=== PATIENT | male | born 1995 | race Caucasian/White ===

== ENCOUNTER → 2017-04-03 | Outpatient (CLI) | payer OTHER ==
--- NOTE | ~2017-04-03 | 2DMMODE ---
[facility] [address] [place] [address] 2 D/M-MODE ECHOCARDIOGRAM Name: NORADU ESTHER Room #: REG CL [facility]#: [id number] Admission: 04/03/17 Attend Phys: Willie Haq Discharge: Date of : 89 Date of Service: 04/03/17 1025 Report #: [id number] THIS REPORT FOR: //name// APPROVED REPORT Study performed: 04/03/2017 09:31:02 EXAM: Comprehensive 2D, Doppler, and color-flow Echocardiogram Patient Location: Out-Patient Status: routine Other Information Study Quality: Good Indications SVT 2D Dimensions RVDd: 35.13 mm LVEF(%): 63.11 (>50%) IVSd: 8.90 (7-11mm) LVOT Diam: 24.06 (18-24mm) LVDd: 50.94 mm PWd: 9.24 (7-11mm) Ascending Ao: 29.64 (22-36mm) LVDs: 33.43 (25-40mm) Aortic Root: 35.06 mm Jeffers's LVEF: 63.11 % Volumes Left Atrial Volume (Systole) Single Plane 4CH: 29.66 mL Single Plane 2CH: 30.34 mL LA ESV Index: 15.00 mL/m2 Aortic Valve AoV Peak Quinton.: 1.26 m/s AO Peak Gr.: 6.33 mmHg LVOT Max P.84 mmHg LVOT Max V: 0.98 m/s LUIS Vmax: 3.54 cm2 Mitral Valve E/A Ratio: 2.4 MV Decel. Time: 203.07 ms MV E Max Quinton.: 0.75 m/s MV A Quinton.: 0.31 m/s MV PHT: 58.89 ms IVRT: 64.59 ms [facility] [address] [place] [address] 2 D/M-MODE ECHOCARDIOGRAM Name: DU MELENDEZ Room #: REG [facility]#: [id number] Admission: 04/03/17 Attend Phys: Willie Haq Discharge: Date of : 89 Date of Service: 04/03/17 1025 Report #: [id number] Pulmonary Valve PV Peak Quinton.: 1.05 m/s PV Peak Gr.: 4.42 mmHg Pulmonary Vein P Vein S: 0.66 m/s P Vein D: 0.72 m/s P Vein S/D Ratio: 0.92 Tricuspid Valve TR Peak Quinton.: 2.25 m/s RAP Estimate: 5.00 mmHg TR Peak Gr.: 20.25 mmHg PA Pressure: 25.00 mmHg Left Ventricle The left ventricle is normal size. There is normal LV segmental wall motion. There is normal left ventricular wall thickness. The left ventricular systolic function is normal. LVEF is 55%. The left ventricular diastolic function is normal. Right Ventricle The right ventricle is normal size. The right ventricular systolic function is normal. Atria The left atrium size is normal. The right atrium size is normal. Aortic Valve The aortic valve is normal in structure. No aortic regurgitation is present. There is no aortic valvular stenosis. Mitral Valve The mitral valve is normal in structure. There is no mitral valve regurgitation noted. No evidence of mitral valve stenosis. Tricuspid Valve The tricuspid valve is normal in structure. There is trace to mild tricuspid regurgitation. The right atrial pressure is estimated at 5 mmHg. Estimated PAP of 25mmHg. Pulmonic Valve The pulmonary valve is normal in structure. Trace to mild pulmonic regurgitation. [facility] [address] [address] 2 D/M-MODE ECHOCARDIOGRAM Name: KARELYCarlaDU ESTHER Room #: REG [facility]#: [id number] Admission: 04/03/17 Attend Phys: Willie Haq Discharge: Date of : 89 Date of Service: 04/03/17 1025 Report #: [id number] The aortic root is normal in size. The ascending aorta is normal in size. IVC is normal in size and collapses >50% with inspiration. Pericardium There is no pericardial effusion. <Conclusion> The left ventricle is normal size. LVEF is 55%. The mitral valve is normal in structure. There is trace to mild tricuspid regurgitation. The right atrial pressure is estimated at 5 mmHg. Estimated PAP of 25mmHg. The pulmonary valve is normal in structure. Trace to mild pulmonic regurgitation. <ELECTRONICALLY SIGNED> By: Willie Veloz MD 04/03/17 1025 1025 1025 Willie Veloz MD /INF
== END ==
LOC: CV 08:16
DX: I47.1 Supraventricular tachycardia (principal)